=== PATIENT | male | born 1975 | race Hispanic/Latino ===

== ENCOUNTER 2016-10-02 19:00 | Emergency (ER) | payer OTHER ==
[2016-10-02 19:11] VITALS: BP 154/82; PULSE 75; RESP 20; TEMP 98.4; O2SAT 99
--- NOTE | 2016-10-02 19:20 | ED PDOC ---
Arrival/HPI - General Historian: Patient - History of Present Illness Time/Duration: Prior to Arrival Quality: Aching Context: Home - General Chief Complaint: Trauma Time Seen by Provider: 10/02/16 19:06 - History of Present Illness Narrative History of Present Illness (Text): 10/02/16 19:15 This 40 yo male presents to this ED c/o right shoulder pain x TROUBLE [employer]. Patient stated he tripped and fell down on his right shoulder. Pain is mild when he rotates shoulder. Denies weakness, paresthesias, sob, cp, dizziness, seizures, neck pain, head injury, back pain, scott, or abnormal gait. (Gary Flynn) Past Medical History - Provider Review Nursing Documentation Reviewed: Yes - Infectious Disease Hx of Infectious Diseases: None - Psychiatric Hx Anxiety: Yes Hx Substance Use: No - Surgical History Other/Comment: dental sx - Anesthesia Hx Anesthesia: Yes Hx Anesthesia Reactions: No Hx Malignant Hyperthermia: No Family/Social History - Physician Review Nursing Documentation Reviewed: Yes Family/Social History: No Known Family HX Smoking Status: Never Smoked Hx Alcohol Use: No Hx Substance Use: No Allergies/Home Meds Allergies/Adverse Reactions: Allergies No Known Allergies Allergy (Verified 10/02/16 19:11) Home Medications: Home Meds Medication Instructions Recorded Confirmed Escitalopram [Lexapro] 15 mg PO DAILY 10/02/16 10/02/16 Finasteride [Finasteride] 1 mg PO DAILY 10/02/16 10/02/16 Review of Systems - Review of Systems Constitutional: Normal. absent: Fatigue, Weight Change, Fevers Eyes: Normal ENT: Normal Respiratory: Normal. absent: SOB, Cough Cardiovascular: Normal. absent: Chest Pain, Palpitations Gastrointestinal: Normal. absent: Abdominal Pain, Nausea, Vomiting Genitourinary Male: Normal. absent: Dysuria, Frequency, Hematuria Musculoskeletal: Other (right shoulder pain) Skin: Normal Neurological: Normal Endocrine: Normal Hemo/Lymphatic: Normal Psychiatric: Normal Physical Exam Temperature: Afebrile Blood Pressure: Normal Pulse: Regular Respiratory Rate: Normal Appearance: Positive for: Well-Appearing, Non-Toxic, Comfortable Pain Distress: None Mental Status: Positive for: Alert and Oriented X 3 - Systems Exam Head: Present: Atraumatic, Normocephalic, Other (no raccoon sign. no gipson sign) Pupils: Present: PERRL, Other (no hyphema) Extroacular Muscles: Present: EOMI Conjunctiva: Present: Normal Ears: Present: Normal, NORMAL TM, Normal Canal, Other (No hemotympanum). No: Erythema, TM Bulging, Fluid, TM Perf Mouth: Present: Moist Mucous Membranes Neck: Present: Normal Range of Motion Respiratory/Chest: Present: Clear to Auscultation, Good Air Exchange. No: Respiratory Distress, Accessory Muscle Use, Wheezes, Retracting, Rhonchi Cardiovascular: Present: Regular Rate and Rhythm, Normal S1, S2. No: Murmurs Upper Extremity: Present: Normal Inspection, NORMAL PULSES, Tenderness (mild right lateral shoulder tenderness. No swelling or ecchymosis), Neurovascularly Intact, Capillary Refill < 2s. No: Cyanosis, Edema, Normal ROM (ROM decreased due to pain), Swelling, Erythema, Temperature Abnormalties, Deformity Medical Decision Making Re-evaluation Time: 20:01 Reassessment Condition: Re-examined, Improved ED Course and Treatment: 10/02/16 19:15 Patient refused Toradol IM at this time. (Gary Flynn) - RAD Interpretation Narrative RAD Interpretations (Text): 10/02/16 20:02 Shoulder x-rays: No Fx or dislocation (Gary Flynn) Radiology Orders: 10/02/16 19:08 SHOULDER RIGHT [RAD] Stat - Medication Orders Current Medication Orders: Discontinued Medications Ibuprofen (Motrin Tab) 600 mg PO STAT STA Stop: 10/02/16 20:02 Last Admin: 10/02/16 20:14 Dose: 600 mg - Procedure PROCEDURE NOTE (Text): 10/03/16 16:01 Arm sling was order (Gary Flynn) Disposition/Present on Arrival - Present on Arrival Any Indicators Present on Arrival: No History of DVT/PE: No History of Uncontrolled Diabetes: No Urinary Catheter: No History of Decub. Ulcer: No History Surgical Site Infection Following: None - Disposition Have Diagnosis and Disposition been Completed?: Yes Disposition Time: 20:03 Patient Plan: Discharge - Disposition Diagnosis: Shoulder pain Disposition: HOME/ ROUTINE Condition: GOOD Discharge Instructions (ExitCare): Shoulder Pain (ED) Additional Instructions: Call private doctor for follow up in 2-3 days. Take medication as instructed. Return to emergency if symptoms worsen. Do not drive with arm sling Prescriptions: Naproxen [Naprosyn Tab] 375 mg PO BID #14 tab Referrals: John Mistry MD [Family Provider] - Follow up with primary Vance Simms MD [Staff Provider] - Follow up with primary Forms: WORK NOTE
--- NOTE | 2016-10-03 07:55 | RAD ---
PROCEDURE: Radiographs of the Right Shoulder HISTORY: pain COMPARISON: No prior. FINDINGS: BONES: Normal. No fracture. JOINTS: Normal. Glenohumeral and acromioclavicular joints preserved. No osteoarthritis. SOFT TISSUES: Normal. OTHER FINDINGS: None. IMPRESSION: Normal radiographs of the right shoulder.
== END 2016-10-02 20:20 | disposition home or self-care (01) ==
LOC: ED 19:00
DX: M25.511 Pain in right shoulder (principal)